=== PATIENT | female | born 1990 | race American Indian/Alaskan Native ===

== ENCOUNTER 2017-07-06 11:09 | Emergency (ER) | payer SELFPAY ==
[2017-07-06 11:50] VITALS: BP 112/71
[2017-07-06 12:52] LABS: Basophils % (Auto) 0.3 % (0.0-1.8); Eosinophils % (Auto) 0.4 % (0.0-4.3); Hematocrit 42.1 % (30.3-42.9); Hemoglobin 14.2 gm/dl (10.1-14.3); Lymphocytes # (Auto) 1.3 K/mm3 (1.2-5.4); Lymphocytes % (Auto) 23.9 % (13.4-35.0); Mean Corpuscular HGB Conc 34 % (30-34); Mean Corpuscular Hemoglobin 32 pg (28-32); Mean Corpuscular Volume 95 fl (79-97); Monocytes # (Auto) 0.4 K/mm3 (0.0-0.8); Monocytes % (Auto) 7.6 % (0.0-7.3); Platelet Count 227 K/mm3 (140-440); Red Blood Count 4.43 M/mm3 (3.65-5.03)
[2017-07-06 12:54] LABS: HCG Qualitative,Urine Negative (Negative)
[2017-07-06 12:56] LABS: Bilirubin,Urine NEG (Negative); Blood,Urine NEG (Negative); Color,Urine Yellow (Yellow); Mucus,Urine 2+ /HPF
[2017-07-06 12:57] LABS: BUN/Creatinine Ratio 13; Blood Urea Nitrogen 10 mg/dL (7-17); Calcium 9.2 mg/dL (8.4-10.2); Hemolysis Index 6; Lipase 12 units/L (13-60)
--- NOTE | 2017-07-06 15:34 | Emergency Department Report ---
HPI - General Chief Complaint: Abdominal Pain Time Seen by Provider: 07/06/17 15:15 - HPI HPI: Patient is a 26-year-old female with no prior medical history who presents to ED stating that [facility] and on Friday she started taking amoxicillin several hours after that she started vomiting and having some epigastric abdominal cramping. Patient states vomiting as well for the past Friday. Patient states she went to urgent care Friday and was given some Zantac and nausea medication. Patient states she still had 2 episodes of vomiting this morning and is unable to really keep down fluids and food. She denies diarrhea, chest pain, shortness of breath, dizziness or headache ED Past Medical Hx - Past Medical History Previous Medical History?: No Hx Psychiatric Treatment: Yes (depression) - Surgical History Past Surgical History?: No - Social History Smoking Status: Current Every Day Smoker Substance Use Type: None - Medications Home Medications: Home Medications Medication Instructions Recorded Confirmed Last Taken Type Ondansetron [Zofran ODT TAB] 8 mg PO BID #20 tab.rapdis 07/06/17 Unknown Rx ED Review of Systems ROS: Stated complaint: ABDOMINAL PAIN Other details as noted in HPI Constitutional: denies: chills, fever Eyes: denies: eye pain, eye discharge, vision change ENT: denies: ear pain, throat pain Respiratory: denies: cough, shortness of breath, wheezing Cardiovascular: denies: chest pain, palpitations Endocrine: no symptoms reported Gastrointestinal: vomiting (2 episode, resolved). denies: abdominal pain, nausea, diarrhea, constipation Genitourinary: denies: urgency, dysuria, discharge Musculoskeletal: denies: back pain, joint swelling, arthralgia Skin: denies: rash, lesions Neurological: denies: headache, weakness, paresthesias Psychiatric: denies: anxiety, depression Hematological/Lymphatic: denies: easy bleeding, easy bruising Physical Exam - Physical Exam Vital Signs: Vital Signs 07/06/17 11:43 Temperature 98.4 F Pulse Rate 72 Respiratory 16 Rate Blood Pressure 112/71 O2 Sat by Pulse 100 Oximetry Physical Exam: GENERAL: Alert and oriented x3, no apparent distress, Normal Gait, atraumatic. MOUTH:Mouth is well hydrated and without lesions. Tonsils nonerythematous or swollen, Uvula midline, Tongue not elevated. Mucous membranes are moist. Posterior pharynx clear, no exudate or lesions. Patent airways. LUNGS: Symetrical with respiration, No wheezing, no rales or crackles, CTAB. HEART: S1, S2 present, regular rate and rhythm without murmur, no rubs, no gallops. Non tender to palpation ABDOMEN: No organomegaly was noted,Positive bowel sounds, soft, and non- distended. . Nontender to palpation on all Quadrants, NO CVA tenderness. BACK: Full range of motion, no spinal tenderness, nontender to palpation. SKIN: Warm and dry, No lesions, No ulceration or induration present. ED Course Vital Signs 07/06/17 11:43 Temperature 98.4 F Pulse Rate 72 Respiratory 16 Rate Blood Pressure 112/71 O2 Sat by Pulse 100 Oximetry ED Medical Decision Making - Lab Data Result diagrams: 07/06/17 12:12 07/06/17 12:12 Laboratory Last Values WBC 5.5 K/mm3 (4.5-11.0) 07/06/17 12:12 RBC 4.43 M/mm3 (3.65-5.03) 07/06/17 12:12 Hgb 14.2 gm/dl (10.1-14.3) 07/06/17 12:12 Hct 42.1 % (30.3-42.9) 07/06/17 12:12 MCV 95 fl (79-97) 07/06/17 12:12 MCH 32 pg (28-32) 07/06/17 12:12 MCHC 34 % (30-34) 07/06/17 12:12 RDW 13.0 % (13.2-15.2) L 07/06/17 12:12 Plt Count 227 K/mm3 (140-440) 07/06/17 12:12 Lymph % (Auto) 23.9 % (13.4-35.0) 07/06/17 12:12 [place] % (Auto) 7.6 % (0.0-7.3) H 07/06/17 12:12 Eos % (Auto) 0.4 % (0.0-4.3) 07/06/17 12:12 Baso % (Auto) 0.3 % (0.0-1.8) 07/06/17 12:12 Lymph # 1.3 K/mm3 (1.2-5.4) 07/06/17 12:12 [place] # 0.4 K/mm3 (0.0-0.8) 07/06/17 12:12 Eos # 0.0 K/mm3 (0.0-0.4) 07/06/17 12:12 Baso # 0.0 K/mm3 (0.0-0.1) 07/06/17 12:12 Seg Neutrophils % 67.8 % (40.0-70.0) 07/06/17 12:12 Seg Neutrophils # 3.7 K/mm3 (1.8-7.7) 07/06/17 12:12 Sodium 141 mmol/L (137-145) 07/06/17 12:12 Potassium 4.1 mmol/L (3.6-5.0) 07/06/17 12:12 Chloride 93.1 mmol/L (98-107) L 07/06/17 12:12 Carbon Dioxide 23 mmol/L (22-30) 07/06/17 12:12 Anion Gap 29 mmol/L 07/06/17 12:12 BUN 10 mg/dL (7-17) 07/06/17 12:12 Creatinine 0.8 mg/dL (0.7-1.2) 07/06/17 12:12 Estimated GFR > 60 ml/min 07/06/17 12:12 BUN/Creatinine Ratio 13 % 07/06/17 12:12 Glucose 68 mg/dL (65-100) 07/06/17 12:12 Calcium 9.2 mg/dL (8.4-10.2) 07/06/17 12:12 Lipase 12 units/L (13-60) L 07/06/17 12:12 Urine Color Yellow (Yellow) 07/06/17 12:14 Urine Turbidity Clear (Clear) 07/06/17 12:14 Urine pH 6.0 (5.0-7.0) 07/06/17 12:14 Ur Specific [place] 1.029 (1.003-1.030) 07/06/17 12:14 Urine Protein 30 mg/dl mg/dL (Negative) 07/06/17 12:14 Urine Glucose (UA) Neg mg/dL (Negative) 07/06/17 12:14 Urine Ketones 80 mg/dL (Negative) 07/06/17 12:14 Urine Blood Neg (Negative) 07/06/17 12:14 Urine Nitrite Neg (Negative) 07/06/17 12:14 Ur Reducing Substances Not Reportable 07/06/17 12:14 Urine Bilirubin Neg (Negative) 07/06/17 12:14 Urine Ictotest Not Reportable 07/06/17 12:14 Urine Urobilinogen 2.0 mg/dL (<2.0) 07/06/17 12:14 Ur Leukocyte Esterase Neg (Negative) 07/06/17 12:14 Urine WBC (Auto) 2.0 /HPF (0.0-6.0) 07/06/17 12:14 Urine RBC (Auto) 4.0 /HPF (0.0-6.0) 07/06/17 12:14 U Epithel Cells (Auto) 2.0 /HPF (0-13.0) 07/06/17 12:14 Urine Mucus 2+ /HPF 07/06/17 12:14 Urine HCG, Qual Negative (Negative) 07/06/17 12:14 - Medical Decision Making 26-year-old female presents with gastritis ED course: CBC, CMP, urinalysis, urine tests ordered All last within normal limit. Patient received Zofran ODT and was able to tolerate by mouth applesauce and crackers I discussed this findings with the patient. no sign of infection I discussed the patient stopped taking amoxicillin. I discussed the patient she may continue taking the Pepcid as prescribed by urgent care clinic I discussed the use of Zofran as needed for nausea. I discussed with the patient to stop taking amoxicillin. 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 Critical care attestation.: If time is entered above; I have spent that time in minutes in the direct care of this critically ill patient, excluding procedure time. ED Disposition Clinical Impression: Gastritis, allergic reaction Disposition: DC-01 TO HOME OR SELFCARE Is pt being admited?: No Does the pt Need Aspirin: No Condition: Stable Instructions: Abdominal Pain (ED), Gastritis (ED), Gastroenteritis (ED) Additional Instructions: Make sure to follow up with the primary care physician as discussed. Take all your medications as you've been prescribed. If you have any worsening symptoms or develop new symptoms please return to ED immediately. Prescriptions: Ondansetron [Zofran ODT TAB] 8 mg PO BID #20 tab.rapdis Referrals: NEGRO BASSETT MD [Referring] - 3-5 Days [facility] [Outside] - 3-5 Days [facility] [Outside] - 3-5 Days [facility] [Provider Group] - 3-5 Days Forms: Accompanied Note, Work/School Release Form(ED) Time of Disposition: 16:24
[2017-07-06] MEDS ORDERED: ZOFRAN ODT PO ONE (16:03)
== END 2017-07-06 16:25 | disposition home or self-care (01) ==
LOC: ED 11:09
DX: K29.70 Gastritis, unspecified, without bleeding (principal); T78.40XA Allergy, unspecified, initial encounter; F32.9 Major depressive disorder, single episode, unspecified; F17.200 Nicotine dependence, unspecified, uncomplicated; X58.XXXA Exposure to other specified factors, initial encounter; Y93.89 Activity, other specified; Y99.8 Other external cause status; Y92.89 Other specified places as the place of occurrence of the external cause
CPT/HCPCS: 36415; 80048; 81001; 81025; 83690; 85025; 99283; Q0162